=== PATIENT | female | born 1970 | race Caucasian/White ===

== ENCOUNTER 2018-02-06 12:33 | Emergency (ER) | payer BC ==
[~2018-02-06] VITALS: Ht 167.6 cm; Wt 83.9 kg
--- OUTSIDE RECORDS SUMMARY | 2018-02-06 12:35 | XMS REPORT | Clinical Summary ---
Author Author [facility] Address Unknown Phone Unavailable Care Team Providers Care Mental Health Worker Name Role Phone Chidi Henao MD PCP Allergies Active Allergy Reactions Severity Noted Date Comments Penicillins 11/12/2016 Sulfa (Sulfonamide 11/12/2016 Antibiotics) Current Medications Prescription Sig. Disp. Refills Start End Date Status Date ALPRAZolam (XANAX) 0.5 MG Take 0.5 mg by mouth. 06/30/20 Active tablet 16 cholecalciferol, vitamin Take 1,000 Units by Active D3, (VITAMIN D3) 1,000 mouth. unit tablet escitalopram (LEXAPRO) 10 Take 10 mg by mouth. Active MG tablet esomeprazole (NexIUM) 40 Take 40 mg by mouth. Active MG capsule exenatide microspheres Inject 2 mg under the Active (BYDUREON) 2 mg skin. suspension,extended rel recon glimepiride (AMARYL) 2 MG Take 2 mg by mouth. Active tablet insulin NPH and regular Inject 7 Units under the Active human (HumuLIN 70/30) 100 skin. unit/mL (70-30) injection metFORMIN (GLUCOPHAGE) Take 1,000 mg by mouth. Active 1,000 mg tablet multivitamin Take 1 tablet by mouth. Active (multivitamin) tablet tamoxifen (NOLVADEX) 20 Take 20 mg by mouth. 07/01/20 Active MG chemo tablet 16 Active Problems Not on file Family History Medical History Relation Name Comments Cancer Father Francis Odonnell mesothelioma Diabetes Father Francis Odonnell Breast cancer Mother Lori Odonnell Diabetes Mother Lori Odonnell Relation Name Status Comments Father Francis Odonnell Mother Lori Odonnell Social History Tobacco Use Types Packs/Day Years Used Date Never Smoker Alcohol Use Drinks/Week oz/Week Comments No Sex Assigned at Date Recorded Not on file Last Filed Vital Signs Not on file Plan of Treatment Health Maintenance Due Date Last Done Comments PAP SMEAR 1989 INFLUENZA VACCINE 06/29/2017 Results Not on fileafter 02/05/2017 Insurance Payer Benefit Subscriber ID Type Phone Address Plan / Group BCBS BCBS xxxxxxxxxxxx PPO AD[employer] PPO/[employer]ART[employer]
[2018-02-06] MEDS ORDERED: DIAZEPAM 2 MG TAB PO ONE (13:00)
== END 2018-02-06 13:18 | disposition home or self-care (01) ==
LOC: ER 12:33
DX: M54.2 Cervicalgia (principal); S16.1XXA Strain of muscle, fascia and tendon at neck level, initial encounter; Y93.84 Activity, sleeping; I10 Essential (primary) hypertension; E11.9 Type 2 diabetes mellitus without complications
CPT/HCPCS: 99282